=== PATIENT | male | born 1950 | race American Indian/Alaskan Native ===

== ENCOUNTER 2017-01-30 13:50 | Emergency (ER) | payer MEDICARE ==
[2017-01-30] MEDS ORDERED: NACL 0.9% 1000 ML 1,000 ML IV ONE ×2 (14:03→18:07)
[2017-01-30] MEDS ORDERED: ZOSYN/NS 4.5GM/100ML 4.5 GM/100 ML VIAL IV ONE (14:04)
[2017-01-30] MEDS ORDERED: D50W (25GM) Syringe IV ONE ×2 (14:05→14:07)
[2017-01-30] MEDS ORDERED: VANCOMYCIN 1,500 MG in NACL 0.9% 500 ML 500 ML IV ONE (14:15)
--- NOTE | 2017-01-30 14:55 | XRay Report ---
AP CHEST: HISTORY: Hypertension There is poor inspiratory effort. AP view of the chest demonstrates a normal mediastinal and cardiac contour with clear lungs and normal bony and soft tissue structures. IMPRESSION: No acute process identified.
[2017-01-30] MEDS ORDERED: VANCOMYCIN PHARMACY TO DOSE IV SCH (15:00)
[2017-01-30 15:02] LABS: Urine Drugs of Abuse Note Disclamer
[2017-01-30 15:07] LABS: Hematocrit 26.2 % (35.5-45.6); Hemoglobin 8.1 gm/dl (11.8-15.2); Mean Corpuscular HGB Conc 31 % (32-34); Mean Corpuscular Hemoglobin 30 pg (28-32); Mean Corpuscular Volume 97 fl (84-94); White Blood Count 10.3 K/mm3 (4.5-11.0)
[2017-01-30 15:16] LABS: INR 1.46 (0.87-1.13)
[2017-01-30 15:16] LABS: Bacteria,Urine 4+ /HPF (Negative); Bilirubin,Urine NEG (Negative); Blood,Urine SM (Negative); Ketones,Urine NEG (Negative); Leukocyte Esterase,Urine MOD (Negative); Mucus,Urine 3+ /HPF; Nitrite,Urine NEG (Negative)
[2017-01-30 15:17] LABS: Partial Thromboplastin Time 29.7 Sec. (24.2-36.6)
[2017-01-30 15:18] LABS: Alanine Aminotransferase 22 units/L (7-56); Albumin/Globulin Ratio 0.7 %; Alkaline Phosphatase 447 units/L (35-129); Anion Gap 26 mmol/L; Blood Urea Nitrogen 30 mg/dL (9-20); Calcium 6.5 mg/dL (8.4-10.2); Carbon Dioxide 19 mmol/L (22-30); Chloride 92.1 mmol/L (98-107); Glucose 142 mg/dL (75-100); Potassium 4.2 mmol/L (3.6-5.0); Sodium 133 mmol/L (137-145)
[2017-01-30 15:23] LABS: Red Cell Distribution Width 24.4 % (13.2-15.2)
[2017-01-30 15:24] LABS: WBC,Urine > 182.0 /HPF (0.0-6.0)
--- NOTE | 2017-01-30 16:15 | Cat Scan Report ---
CT HEAD WITHOUT CONTRAST INDICATION: Altered mental status. COMPARISON: None similar. FINDINGS: Noncontrast head CT limited due to patient's head tilt/position, though demonstrates normal ventricles and sulci without acute or recent infarct, hemorrhage, mass effect or midline shift. Slight periventricular hypodensities. No abnormal extra-axial fluid collections. Posterior fossa structures and basilar cisterns appear within normal limits. Symmetric eye globes. Moderate left and mild right sphenoid and posterior ethmoid sinus mucosal thickening. Clear remainder imaged paranasal sinuses and mastoid air cells. Atherosclerotic ICA calcifications. Intact calvarium. Normal overlying scalp soft tissues. Few missing teeth. CONCLUSION: No acute intracranial CT abnormality with sinusitis noted, as described. Thank you for the opportunity to participate in this patient's care.
[2017-01-30 16:21] LABS: Basophils % (Manual) 0 % (0.0-1.8); Blastocytes % (Manual) 0 %; Eosinophils % (Manual) 0 % (0.0-4.3)
[2017-01-30 16:22] LABS: Anisocytosis 2+; Macrocytosis Few
[2017-01-30 16:23] LABS: Diff Status Complete; Platelet Estimate Appears Decreased; Poikilocytosis Few; Target Cells 1+
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
[2017-01-30 16:52] LABS: Platelet Count 67 K/mm3 (140-440)
--- NOTE | 2017-01-30 17:59 | Emergency Department Report ---
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 Metamyelocytes # Myelocytes # Promyelocytes # Blast Cells # WBC Morphology Hypersegmented Neuts Hyposegmented Neuts Hypogranular Neuts Smudge Cells Toxic Granulation Toxic Vacuolation Dohle Bodies Pelger-Huet Anomaly Pricila Rods Platelet Estimate Clumped Platelets Plt Clumps, EDTA Large Platelets Giant Platelets Platelet Satelliting Plt Morphology Comment RBC Morphology Dimorphic RBCs Polychromasia Hypochromasia Poikilocytosis Anisocytosis Microcytosis Macrocytosis Spherocytes Pappenheimer Bodies Sickle Cells Target Cells Tear Drop Cells Ovalocytes Helmet Cells Saenz-Qulin Bodies Julian Rings [place] Cells Bite Cells Crenated Cell Elliptocytes Acanthocytes (Spur) Rouleaux Hemoglobin C Crystals Schistocytes Malaria parasites Fernando Bodies Hem Pathologist Commnt PT INR APTT Sodium Potassium Chloride Carbon Dioxide Anion Gap BUN Creatinine Estimated GFR BUN/Creatinine Ratio Glucose POC Glucose Lactic Acid Calcium Magnesium Total Bilirubin AST ALT Alkaline Phosphatase NT-Pro-B Natriuret Pep Total Protein Albumin Albumin/Globulin Ratio TSH 3.140 Urine Color Urine Turbidity Urine pH Ur Specific [place] Urine Protein Urine Glucose (UA) Urine Ketones Urine Blood Urine Nitrite Urine Bilirubin Urine Urobilinogen Ur Leukocyte Esterase Urine WBC (Auto) Urine RBC (Auto) U Epithel Cells (Auto) Urine Bacteria (Auto) Urine WBC Clumps Urine Mucus Salicylates < 0.3 L Urine Opiates Screen Urine Methadone Screen Acetaminophen < 15.0 Ur Barbiturates Screen Ur Phencyclidine Scrn Ur Amphetamines Screen U Benzodiazepines Scrn Urine Cocaine Screen U Marijuana (THC) Screen Drugs of Abuse Note Plasma/Serum Alcohol 01/30/17 01/30/17 01/30/17 14:50 14:50 14:50 WBC RBC Hgb Hct MCV MCH MCHC RDW Plt Count Wirt % (Auto) Add Manual Diff Total Counted Seg Neuts % (Manual) Band Neutrophils % Lymphocytes % (Manual) Reactive Lymphs % (Man) Monocytes % (Manual) Eosinophils % (Manual) Basophils % (Manual) Metamyelocytes % Myelocytes % Promyelocytes % Blast Cells % Nucleated RBC % Seg Neutrophils # Man Band Neutrophils # Lymphocytes # (Manual) Abs React Lymphs (Man) Monocytes # (Manual) Eosinophils # (Manual) Basophils # (Manual) Metamyelocytes # Myelocytes # Promyelocytes # Blast Cells # WBC Morphology Hypersegmented Neuts Hyposegmented Neuts Hypogranular Neuts Smudge Cells Toxic Granulation Toxic Vacuolation Dohle Bodies Pelger-Huet Anomaly Pricila Rods Platelet Estimate Clumped Platelets Plt Clumps, EDTA Large Platelets Giant Platelets Platelet Satelliting Plt Morphology Comment RBC Morphology Dimorphic RBCs Polychromasia Hypochromasia Poikilocytosis Anisocytosis Microcytosis Macrocytosis Spherocytes Pappenheimer Bodies Sickle Cells Target Cells Tear Drop Cells Ovalocytes Helmet Cells Saenz-Qulin Bodies Julian Rings [place] Cells Bite Cells Crenated Cell Elliptocytes Acanthocytes (Spur) Rouleaux Hemoglobin C Crystals Schistocytes Malaria parasites Fernando Bodies Hem Pathologist Commnt PT 17.7 H INR 1.46 H APTT 29.7 Sodium Potassium Chloride Carbon Dioxide Anion Gap BUN Creatinine Estimated GFR BUN/Creatinine Ratio Glucose POC Glucose Lactic Acid Calcium Magnesium Total Bilirubin AST ALT Alkaline Phosphatase NT-Pro-B Natriuret Pep 1362 H Total Protein Albumin Albumin/Globulin Ratio TSH Urine Color Urine Turbidity Urine pH Ur Specific [place] Urine Protein Urine Glucose (UA) Urine Ketones Urine Blood Urine Nitrite Urine Bilirubin Urine Urobilinogen Ur Leukocyte Esterase Urine WBC (Auto) Urine RBC (Auto) U Epithel Cells (Auto) Urine Bacteria (Auto) Urine WBC Clumps Urine Mucus Salicylates Urine Opiates Screen Urine Methadone Screen Acetaminophen Ur Barbiturates Screen Ur Phencyclidine Scrn Ur Amphetamines Screen U Benzodiazepines Scrn Urine Cocaine Screen U Marijuana (THC) Screen Drugs of Abuse Note Plasma/Serum Alcohol < 0.01 01/30/17 15:16 WBC RBC Hgb Hct MCV MCH MCHC RDW Plt Count Wirt % (Auto) Add Manual Diff Total Counted Seg Neuts % (Manual) Band Neutrophils % Lymphocytes % (Manual) Reactive Lymphs % (Man) Monocytes % (Manual) Eosinophils % (Manual) Basophils % (Manual) Metamyelocytes % Myelocytes % Promyelocytes % Blast Cells % Nucleated RBC % Seg Neutrophils # Man Band Neutrophils # Lymphocytes # (Manual) Abs React Lymphs (Man) Monocytes # (Manual) Eosinophils # (Manual) Basophils # (Manual) Metamyelocytes # Myelocytes # Promyelocytes # Blast Cells # WBC Morphology Hypersegmented Neuts Hyposegmented Neuts Hypogranular Neuts Smudge Cells Toxic Granulation Toxic Vacuolation Dohle Bodies Pelger-Huet Anomaly Pricila Rods Platelet Estimate Clumped Platelets Plt Clumps, EDTA Large Platelets Giant Platelets Platelet Satelliting Plt Morphology Comment RBC Morphology Dimorphic RBCs Polychromasia Hypochromasia Poikilocytosis Anisocytosis Microcytosis Macrocytosis Spherocytes Pappenheimer Bodies Sickle Cells Target Cells Tear Drop Cells Ovalocytes Helmet Cells Saenz-Qulin Bodies Julian Rings [place] Cells Bite Cells Crenated Cell Elliptocytes Acanthocytes (Spur) Rouleaux Hemoglobin C Crystals Schistocytes Malaria parasites Fernando Bodies Hem Pathologist Commnt PT INR APTT Sodium Potassium Chloride Carbon Dioxide Anion Gap BUN Creatinine Estimated GFR BUN/Creatinine Ratio Glucose POC Glucose 174 H Lactic Acid Calcium Magnesium Total Bilirubin AST ALT Alkaline Phosphatase NT-Pro-B Natriuret Pep Total Protein Albumin Albumin/Globulin Ratio TSH Urine Color Urine Turbidity Urine pH Ur Specific [place] Urine Protein Urine Glucose (UA) Urine Ketones Urine Blood Urine Nitrite Urine Bilirubin Urine Urobilinogen Ur Leukocyte Esterase Urine WBC (Auto) Urine RBC (Auto) U Epithel Cells (Auto) Urine Bacteria (Auto) Urine WBC Clumps Urine Mucus Salicylates Urine Opiates Screen Urine Methadone Screen Acetaminophen Ur Barbiturates Screen Ur Phencyclidine Scrn Ur Amphetamines Screen U Benzodiazepines Scrn Urine Cocaine Screen U Marijuana (THC) Screen Drugs of Abuse Note Plasma/Serum Alcohol - EKG Data -: EKG Interpreted by Me EKG shows normal: sinus rhythm, axis, intervals, QRS complexes, ST-T waves Rate: normal - EKG Data Interpretation: nonspecific ST-T wave danielle, other (1 PVC, low voltage EKG.) - Radiology Data Radiology results: report reviewed interpreted by me: Extensive metastatic disease particularly of the chest and bones Critical Care Time: Yes Critical care time in (mins) excluding proc time.: 60 Critical care attestation.: If time is entered above; I have spent that time in minutes in the direct care of this critically ill patient, excluding procedure time. ED Disposition Clinical Impression: Elevated lactic acid level, Thrombocytopenia, Hyponatremia, Prostate cancer metastatic to bone, Prostate cancer metastatic to lung CVA (cerebral vascular accident) Qualifiers: CVA mechanism: unspecified Qualified Code(s): I63.9 - Cerebral infarction, unspecified Anemia Qualifiers: Anemia type: unspecified type Qualified Code(s): D64.9 - Anemia, unspecified Disposition: OP ADMIT IP TO THIS HOSP Is pt being admited?: Yes Does the pt Need Aspirin: No (contraindicated secondary thrombocytopenia) Condition: Stable Referrals: PRIMARY CARE, [Primary Care Provider] - 3-5 Days
[2017-01-30 23:59] VITALS: BP 93/45
[2017-01-31] MEDS ORDERED: VANCOMYCIN 1,250 MG in NACL 0.9% 250ML 250 ML IV SCH (05:00)
--- NOTE | 2017-01-31 07:38 | XRay Report ---
AP PELVIS: History: Trauma to right hip, pain. External artifact overlies the intertrochanteric region of the proximal right femur. Grossly, there is no evidence for pelvic fracture or diastases. Bilateral hip joints and proximal femurs are within normal limits. The bony structures appear slightly sclerotic which is probably related to renal osteodystrophy. IMPRESSION: No acute injury is appreciated on x-ray.
== END 2017-01-30 23:11 | disposition admitted as inpatient to this hospital (09) ==
LOC: ED 13:50
DX: I63.9 Cerebral infarction, unspecified (principal); D64.9 Anemia, unspecified; C61 Malignant neoplasm of prostate; C79.51 Secondary malignant neoplasm of bone; C78.00 Secondary malignant neoplasm of unspecified lung; D69.6 Thrombocytopenia, unspecified; R74.0 Nonspecific elevation of levels of transaminase and lactic acid dehydrogenase [LDH]; E87.1 Hypo-osmolality and hyponatremia
CPT/HCPCS: 36415; 51702; 70450; 71010; 71250; 72170; 74176; 80053; 80307; 81001; 82140; 82962; 83735; 83880; 84443; 85007; 85025; 85610; 85730; 87040; 87086; 93005; 93010; 96361; 96365; 96366; 96367; 96375; 99291; G0480; J2543; J3370; J7030; J7040; 80320; J7050